=== PATIENT | female | born 1960 | race African-American/Black ===

== ENCOUNTER 2018-11-20 06:32 | Inpatient (IN) | payer MEDICAID ==
[~2018-11-20] VITALS: Ht 154.9 cm; Wt 63.5 kg
[~2018-11-20 06:32] MED LIST: ALBU18HF2 IH; ASPI-1159 PO; ATOR40TA70 PO; BENA5TAB; LOP25 PO; MIRT15TA6 PO; SIMV40TA5
[2018-11-20] MEDS ORDERED: LACTATED RINGERS 1,000 ML IV SCH (08:30)
[2018-11-20] MEDS ORDERED: BENA5TAB6 PO (08:37)
[2018-11-20] MEDS ORDERED: ABIL5 PO (08:39)
[2018-11-20] MEDS ORDERED: ATOR40TA70 PO (08:39)
[2018-11-20] MEDS ORDERED: BUPIVACAINE/EPINEPH/PF 0.25%/0.0005 10ML ONE (11:00)
[2018-11-20] MEDS ORDERED: MORPHINE SULFATE/PF 1MG/ML 10ML AMP ONE (11:01)
[2018-11-20] MEDS ORDERED: EPINEPHRINE 1:1000 1 MG/ML AMP ONE (11:01)
[2018-11-20] MEDS ORDERED: BACITRACIN 50,000 UNITS/VIAL ONE ×2 (11:04→12:18)
[2018-11-20] MEDS ORDERED: BUPIVACAINE HCL/EPINEPHRINE 0.5%/0.0005 30ML ONE (12:10)
[2018-11-20] MEDS ORDERED: ROPIVACAINE HCL 10MG/ML 20 ML VIAL EPI ONE (12:17)
[2018-11-20] MEDS ORDERED: FENTANYL CITRATE/PF 50MCG/ML 2ML VIAL ONE (12:22)
[2018-11-20] MEDS ORDERED: MIDAZOLAM HCL 2 MG/2 ML VIAL ONE (12:22)
[2018-11-20] MEDS ORDERED: PROPOFOL 200MG/20ML VIAL IV ONE (12:22)
[2018-11-20] MEDS ORDERED: ROCURONIUM BROMIDE 10MG/ML VIAL 5ML IV ONE (12:22)
[2018-11-20] MEDS ORDERED: NEOSTIGMINE METHYLSULFATE 1MG/ML 10 ML VIAL ONE (12:22)
[2018-11-20] MEDS ORDERED: GLYCOPYRROLATE 0.2 MG/ML 2ML VIAL ONE (12:23)
[2018-11-20] MEDS ORDERED: ONDANSETRON HCL 4MG/2ML INJ ONE (12:23)
[2018-11-20] MEDS ORDERED: PHENYLEPHRINE HCL 10 MG/ML 1ML (IV VIAL) IV ONE (12:23)
[2018-11-20] MEDS ORDERED: CEFAZOLIN SODIUM 1000MG/VIAL ONE (12:23)
[2018-11-20] MEDS ORDERED: DEXAMETHASONE 4MG/ML 1ML VIAL ONE (12:23)
[2018-11-20] MEDS ORDERED: SUCCINYLCHOLINE CHLORIDE 200MG/10ML IV ONE (12:23)
[2018-11-20] MEDS ORDERED: SODIUM CHLORIDE 0.9% 10ML VIAL ONE (12:23)
[2018-11-20] MEDS ORDERED: METOCLOPRAMIDE HCL 10MG/2ML VIAL ONE (12:23)
[2018-11-20] MEDS ORDERED: EPHEDRINE SULFATE 50MG/ML VIAL ONE (12:23)
[2018-11-20] MEDS ORDERED: LIDOCAINE HCL/PF 1% 10 MG/ML 5ML VIAL ONE (12:23)
[2018-11-20] MEDS ORDERED: ALBUMIN HUMAN 12.5G/250ML (5%) IV ONE (13:26)
[2018-11-20] MEDS ORDERED: ZOLPIDEM TARTRATE 5MG TABLET PO PRN (15:00)
[2018-11-20] MEDS ORDERED: ACETAMINOPHEN 325MG TABLET PO PRN (15:00)
[2018-11-20] MEDS ORDERED: ONDANSETRON HCL 4MG/2ML INJ IV PRN (15:00)
[2018-11-20] MEDS ORDERED: MAGNESIUM HYDROXIDE 400MG/5ML 30ML UDC PO PRN (15:00)
[2018-11-20] MEDS ORDERED: NALOXONE INJ IV PRN (16:15)
[2018-11-20] MEDS ORDERED: DIPHENHYDRAMINE INJ IV PRN (16:15)
[2018-11-20] MEDS ORDERED: HYDROMORPHONE PCA 10MG/50ML IV PRN (16:15)
[2018-11-20] MEDS ORDERED: ONDANSETRON INJ IV PRN (16:15)
[2018-11-20 20:05] VITALS: BP 127/54
[2018-11-20 21:00] VITALS: BP 127/54
[2018-11-21] VITALS: BP 122/62
[2018-11-21] MEDS ORDERED: IPRATROPIUM/ALBUTEROL 0.5-3(2.5)MG/3ML NEB HHN SCH
[2018-11-21] MEDS: DOCUSATE SODIUM 100MG CAPSULE PO SCH ×3 (00:44→17:00)
[2018-11-21] MEDS: CEFAZOLIN 2,000 MG in DEXT 5% WATER 100 ML IV SCH ×2 (00:44→09:07)
[2018-11-21 04:00] VITALS: BP 114/61
[2018-11-21 06:48] LABS: BASOPHILS % 0.3 % (0.0-2.0); HEMATOCRIT. 36.1 % (36.0-48.0); HEMOGLOBIN. 12.1 g/dL (12.0-16.0); MEAN CORPUSCULAR HEMOGLOBIN 31.8 pg (28.0-32.0); MEAN CORPUSCULAR VOLUME 94.7 fL (81.0-99.0); MEAN PLATELET VOLUME 8.1 fl (7.4-10.4); MONOCYTES % 7.2 % (2.0-8.0); NEUTROPHILS % 85.5 % (40.0-76.0); PLATELET 235 x1000/uL (130-400); RED BLOOD CELL COUNT 3.81 mill/uL (4.2-5.4); RED CELL DISTRIBUTION WIDTH 14.3 % (11.6-14.6)
[2018-11-21 07:04] LABS: CHLORIDE 108 mEq/L (98-107)
[2018-11-21 07:10] LABS: LDL CHOLESTEROL 112 mg/dL (5-100)
[2018-11-21 07:13] LABS: HDL CHOLESTEROL 55 mg/dL (40-59)
[2018-11-21 08:00] VITALS: BP 126/69
[2018-11-21] MEDS: TRAMADOL 50MG TABLET PO PRN ×2 (09:07→22:46)
[2018-11-21 11:44] VITALS: BP 146/82
[2018-11-21 16:00] VITALS: BP 119/67
[2018-11-21 20:00] VITALS: BP 161/78
[2018-11-22] VITALS: BP 146/76
[2018-11-22 04:00] VITALS: BP 142/77
[2018-11-22] MEDS: TRAMADOL 50MG TABLET PO PRN (07:26)
[2018-11-22 08:00] VITALS: BP_SYST 144; BP_SYST 149; BP_DIAS 87; BP_DIAS 91
[2018-11-22] MEDS: DOCUSATE SODIUM 100MG CAPSULE PO SCH (09:00)
[2018-11-22 12:00] VITALS: BP 143/80
[2018-11-22] MEDS ORDERED: KETOROLAC 30MG/ML VIAL IV PRN (12:00)
[2018-11-22 12:09] VITALS: BP 144/91
== END 2018-11-22 13:35 | disposition home or self-care (01) | DRG 315 ==
LOC: OR 06:32 → 6EST 22:48
PROVIDERS: ADMIT Orthopaedic Surgery; ATTEND Internal Medicine
PROC: 0LQ10ZZ Repair Right Shoulder Tendon, Open Approach (ICD-10-PCS; principal; 2018-11-20)
PROC: 0RNJ0ZZ Release Right Shoulder Joint, Open Approach (ICD-10-PCS; 2018-11-20)
PROC: 3E0T3BZ Introduction of Anesthetic Agent into Peripheral Nerves and Plexi, Percutaneous Approach (ICD-10-PCS; 2018-11-20)
DX: M75.121 Complete rotator cuff tear or rupture of right shoulder, not specified as traumatic (principal); I11.0 Hypertensive heart disease with heart failure; I50.9 Heart failure, unspecified; E78.5 Hyperlipidemia, unspecified; F12.90 Cannabis use, unspecified, uncomplicated; F17.210 Nicotine dependence, cigarettes, uncomplicated; I25.2 Old myocardial infarction; J45.909 Unspecified asthma, uncomplicated; M19.019 Primary osteoarthritis, unspecified shoulder; M75.122 Complete rotator cuff tear or rupture of left shoulder, not specified as traumatic; Z88.0 Allergy status to penicillin; Z98.891 History of uterine scar from previous surgery
CPT/HCPCS: 36415; 80048; 80061; 83880; 84443; 97166; A4565; C1713; C1893; J0171; J0330; J0690; J1100; J1170; J2250; J2274; J2370; J2405; J2704; J2710; J2765; J2795; J3010; J3490; J7060; P9041; A4315

== ENCOUNTER → 2020-05-05 | Outpatient (CLI) | payer MEDICAID ==
[~2020-05-05] MED LIST changes: +ABIL5 PO; -ASPI-1159 PO; +ASPI-1497 PO; -BENA5TAB; +BENA5TAB6 PO; -MIRT15TA6 PO; +NAPR-681 PO; -SIMV40TA5
== END | disposition home or self-care (01) ==
LOC: LAB 13:07
PROVIDERS: ATTEND Orthopaedic Surgery
DX: Z01.812 Encounter for preprocedural laboratory examination (principal); Z20.828 Contact with and (suspected) exposure to other viral communicable diseases; M75.121 Complete rotator cuff tear or rupture of right shoulder, not specified as traumatic
CPT/HCPCS: C9803; U0003